=== PATIENT | female | born 1960 | race Two or more races ===

== ENCOUNTER 2023-04-30 16:27 | Emergency (ER) | payer MEDICARE, MEDICAID, SELFPAY ==
[2023-04-30 16:31] VITALS: BP 127/73; PULSE 87; RESP 18; TEMP 36.8; O2SAT 98; BMI 24.0
--- NOTE | 2023-04-30 16:43 | ECG_ITS ---
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
--- NOTE | 2023-04-30 16:43 | XR_ITS ---
The [address] [address] Patient Name: ETELVINA VANESSA MRN: [id number] date: 1960 Sex: F Assigned Patient Location: ER Current Patient Location: ER Accession/Order Number: [id number] Exam Date: 04/30/2023 16:58 Report Date: 04/30/2023 17:11 At the request of: SONI CHRISTIAN Procedure: XR chest 1V TITLE: XR chest 1V COMPARISON: None. CLINICAL HISTORY: CP TECHNIQUE: One view. FINDINGS: There is a normal cardiac and mediastinal contour. Mildly tortuous thoracic aorta. Left subclavian AICD device. The pulmonary vascular pattern is normal. The lungs are clear and the pleural margins are sharp. There are no significant skeletal abnormalities. XR/XR chest 1V IMPRESSION: NO ACUTE RADIOGRAPHIC FINDINGS Electronically authenticated by: CAROLINE SPAULDING Date: 04/30/2023 17:11
--- NOTE | 2023-04-30 16:46 | ED_ITS ---
HPI - Chest Pain General Chief Complaint: Chest Pain Stated Complaint: Chest Pain, Pacemaker/Water build-up Time Seen by Provider: 04/30/23 16:28 Source: patient Mode of arrival: walk-in Limitations: no limitations History of Present Illness HPI narrative: 62-year-old female presents for chest pain. It's been intermittent in the center and left side of her chest since 11:00 this morning, about six hours ago. It f eels like a sharp ache. It doesn't seem to radiate. No fever or trauma. She has a pacemaker. She doesn't know if she's ever had a heart catheterization or not. Family doesn't know either. She has no back pain or complaints of shortness of breath. Related Data Home Medications Medication Instructions Recorded Confirmed albuterol sulfate 90 mcg/actuation 2 puff inhalation Q4H PRN 04/30/23 04/30/23 aerosol inhaler shortness of breath or wheezing atorvastatin 40 mg tablet 40 mg PO BEDTIME 04/30/23 04/30/23 carvedilol 25 mg tablet 25 mg PO Q12H 04/30/23 04/30/23 lisinopril 20 mg tablet 20 mg PO DAILY 04/30/23 04/30/23 omeprazole 20 mg capsule,delayed 20 mg PO DAILY 04/30/23 04/30/23 release oxycodone 10 mg tablet 10 mg PO Q6H PRN pain 04/30/23 04/30/23 spironolactone 25 mg tablet 25 mg PO DAILY 04/30/23 04/30/23 tiotropium 2.5 mcg-olodaterol 2.5 2 puff inhalation Q24H 04/30/23 04/30/23 mcg/actuation mist for inhalation (Stiolto Respimat) tizanidine 4 mg tablet 4 mg PO BEDTIME PRN muscle 04/30/23 04/30/23 spasticity Allergies Allergy/AdvReac Type Severity Reaction Status Date / Time No Known Drug Allergies Allergy Verified 04/30/23 16:39 Review of Systems ROS Narrative A ten point review of systems is negative except as noted above. PFSH PFSH Social History Smoking status: Current every day smoker Exam Narrative Exam Narrative: Nurses note and vital signs reviewed and patient is not hypoxic. General: The patient appears well and in no apparent distress. Patient is resting comfortably on cart. Skin: Warm, dry, no pallor noted. There is no rash noted. Head: Normocephalic, atraumatic Eye: Normal conjunctiva, no drainage Ears, Nose, Mouth, and Throat: oral mucosa is moist. Nares patent. Cardiovascular: Regular Rate and Rhythm Respiratory: Patient is in no distress, no accessory muscle use, lungs are clear to auscultation, no wheezing, rales or rhonchi Back: non-tender GI: soft and nontender Musculoskeletal: The patient has no evidence of calf tenderness, no pitting edema, symmetrical pulses noted bilaterally Neurological: A&O, normal speech Psychiatric: Cooperative Constitutional Vital Signs, click to edit/add: Last Vital Signs Temp 98.2 F 04/30/23 16:31 Pulse 87 04/30/23 16:31 Resp 18 04/30/23 16:31 BP 127/73 04/30/23 16:31 Pulse Ox 98 04/30/23 16:31 O2 Del Method Room Air 04/30/23 16:31 Course Vital Signs Vital signs: Vital Signs Temperature 98.2 F 04/30/23 16:31 Pulse Rate 87 04/30/23 16:31 Respiratory Rate 18 04/30/23 16:31 Blood Pressure 127/73 04/30/23 16:31 Pulse Oximetry 98 04/30/23 16:31 Oxygen Delivery Method Room Air 04/30/23 16:31 Temperature 98.2 F 04/30/23 16:31 Pulse Rate 87 04/30/23 16:31 Respiratory Rate 18 04/30/23 16:31 Blood Pressure 127/73 04/30/23 16:31 Pulse Oximetry 98 04/30/23 16:31 Oxygen Delivery Method Room Air 04/30/23 16:31 MDM - Chest Pain MDM Narrative Medical decision making narrative: two sets of troponin are negative. Her workup otherwise is negative as well and she is able to be discharged home. At this point I do not suspect acute coronary syndrome. I do not suspect pulmonary embolism. Treatment diagnosis and follow up are discussed with the patient and her family. Differential Diagnosis Differential diagnosis: Likely pneumothorax, unstable angina pectoris, atypical chest pain, st elevation myocardial infarction, costochondritis and chest pain Lab Data Attestation: I reviewed the patient's lab results. Labs: Lab Results 04/30/23 04/30/23 Range/Units 16:55 18:07 WBC 8.1 (4.0-11.0) 10^3/uL RBC 3.80 L (4.20-5.40) 10^6/uL Hgb 12.4 (12.0-16.0) g/dL Hct 37.3 (36.0-48.0) % MCV 98.2 (81.0-99.0) fL MCH 32.6 (26.7-34.0) pg MCHC 33.2 (29.9-35.2) g/dL RDW 13.6 (11.0-15.0) % Plt Count 205 (150-450) 10^3/uL MPV 10.4 (9.5-13.5) fL Neut % (Auto) 54.7 (43.0-75.0) % Lymph % (Auto) 27.4 (20.5-60.0) % [place] % (Auto) 12.6 H (1.7-12.0) % Eos % (Auto) 3.9 (0.9-7.0) % Baso % (Auto) 1.0 (0.2-2.0) % Neut # (Auto) 4.4 (1.4-6.5) 10^3/uL Lymph # (Auto) 2.2 (1.2-3.8) 10^3/uL [place] # (Auto) 1.0 H (0.3-0.8) 10^3/uL Eos # (Auto) 0.3 (0.0-0.7) 10^3/uL Baso # (Auto) 0.1 (0.0-0.1) 10^3/uL Abs Immat Gran (auto) 0.03 (0.00-0.03) 10^3/uL Imm/Tot Granulo (auto) 0.4 (0.0-0.5) % Sodium 139 (136-145) mmol/L Potassium 4.4 (3.5-5.1) mmol/L Chloride 105 (98-107) mmol/L Carbon Dioxide 24.4 (21.0-32.0) mmol/L Anion Gap 14.0 BUN 27.0 H (7.0-18.0) mg/dL Creatinine 1.71 H (0.55-1.02) mg/dL Est GFR ( Amer) 37 L (>=60) Est GFR (Non-Af Amer) 30 L (>=60) BUN/Creatinine Ratio 15.8 Glucose 101 (74-106) mg/dL Calcium 8.8 (8.5-10.1) mg/dL Troponin I High Sens 14.6 14.2 (4.0-51.3) pg/mL Imaging Data Chest x-ray: Radiologist's impression: Procedure: XR chest 1V TITLE: XR chest 1V COMPARISON: None. CLINICAL HISTORY: CP TECHNIQUE: One view. FINDINGS: There is a normal cardiac and mediastinal contour. Mildly tortuous thoracic aorta. Left subclavian AICD device. The pulmonary vascular pattern is normal. The lungs are clear and the pleural margins are sharp. There are no significant skeletal abnormalities. IMPRESSION: NO ACUTE RADIOGRAPHIC FINDINGS Electronically authenticated by: CAROLINE SPAULDING Date: 04/30/2023 17:11 ECG Data Attestation: I personally reviewed and interpreted this ECG as follows: (EKG on my interpretation shows sinus rhythm with first-degree AV block and a left bundle branch block.) Heart Score History: Slightly/Non-Suspicious ECG: Normal Age: >45-<65 years Risk Factors: 1 or 2 Risk Factors Troponin: <Normal Limit Total Heart Score Recommendations & Risks:: 2 Discharge Plan Discharge Chief Complaint: Chest Pain Clinical Impression: Chest pain Patient Disposition: Home, Self-Care Time of Disposition Decision: 18:39 Condition: Good Mode of Transportation: Private Vehicle Prescriptions / Home Meds: No Action albuterol sulfate 90 mcg/actuation HFA aerosol inhaler 2 puff INHALATION Q4H PRN (Reason: shortness of breath or wheezing) atorvastatin 40 mg tablet 40 mg PO BEDTIME carvedilol 25 mg tablet 25 mg PO Q12H lisinopril 20 mg tablet 20 mg PO DAILY omeprazole 20 mg capsule,delayed release(DR/EC) 20 mg PO DAILY oxycodone 10 mg tablet 10 mg PO Q6H PRN (Reason: pain) spironolactone 25 mg tablet 25 mg PO DAILY Stiolto Respimat 2.5-2.5 mcg/actuation mist 2 puff INHALATION Q24H tizanidine 4 mg tablet 4 mg PO BEDTIME PRN (Reason: muscle spasticity) Instructions: Chest Pain (ED) Stand Alone Forms: Portal Instructions Referrals: Physician,Non-Staff, MD [Primary Care Provider] - 1 week
[2023-04-30] MEDS: ASPIRIN 81 MG TAB.CHEW 324 MG PO (16:51)
[2023-04-30] MEDS: NITROGLYCERIN 0.4 MG BOTTLE PO (16:51)
[2023-04-30 16:58] VITALS: PULSE 85
[2023-04-30 17:04] LABS: Basophils Absolute Auto 0.1 10^3/uL (0.0-0.1); Eosinophils Absolute Auto 0.3 10^3/uL (0.0-0.7); Eosinophils Percent Auto 3.9 % (0.9-7.0); Hematocrit 37.3 % (36.0-48.0); Hemoglobin 12.4 g/dL (12.0-16.0); Immature Granulocytes Abs Auto 0.03 10^3/uL (0.00-0.03); Immature Granulocytes Pct Auto 0.4 % (0.0-0.5); Lymphocytes Absolute Auto 2.2 10^3/uL (1.2-3.8); Lymphocytes Percent Auto 27.4 % (20.5-60.0); Mean Corpuscular HGB Conc 33.2 g/dL (29.9-35.2); Mean Corpuscular Hemoglobin 32.6 pg (26.7-34.0); Mean Corpuscular Volume 98.2 fL (81.0-99.0); Mean Platelet Volume 10.4 fL (9.5-13.5); Monocytes Percent Auto 12.6 % (1.7-12.0); Neutrophils Absolute Auto 4.4 10^3/uL (1.4-6.5); Neutrophils Percent Auto 54.7 % (43.0-75.0); Platelet Count 205 10^3/uL (150-450); Red Cell Distribution Width 13.6 % (11.0-15.0); White Blood Count 8.1 10^3/uL (4.0-11.0)
[2023-04-30 17:19] LABS: BUN Creatinine Ratio 15.8; Calcium 8.8 mg/dL (8.5-10.1); Carbon Dioxide 24.4 mmol/L (21.0-32.0); Chloride 105 mmol/L (98-107); Estimated GFR (African America 37 (>=60); Estimated GFR (Non-African Ame 30 (>=60); Glucose 101 mg/dL (74-106); Potassium 4.4 mmol/L (3.5-5.1); Sodium 139 mmol/L (136-145); Troponin I High Sensitivity 14.6 pg/mL (4.0-51.3)
[2023-04-30 18:34] LABS: Troponin I High Sensitivity 14.2 pg/mL (4.0-51.3)
== END 2023-04-30 18:53 | disposition home or self-care (01) ==
PROVIDERS: Emergency Provider Emergency Medicine
DX: R07.9 Chest pain, unspecified (principal); Z95.0 Presence of cardiac pacemaker; Z79.899 Other long term (current) drug therapy; F17.210 Nicotine dependence, cigarettes, uncomplicated
CPT/HCPCS: 36415; 71045; 80048; 84484; 85025; 93005; 99285